=== PATIENT | male | born 1945 | race Caucasian/White ===

== ENCOUNTER 2023-09-23 09:04 | Inpatient (IN) | payer MEDICARE, OTHER ==
[2023-09-24] MEDS ORDERED: Acetaminophen 325 MG Tab PO PRN (12:07)
[2023-09-24] MEDS ORDERED: Nitroglycerin 0.4 MG Tab.SL SL PRN (12:34)
[2023-09-24] MEDS ORDERED: Prochlorperazine 5 MG Tab PO PRN (13:22)
[2023-09-24] MEDS ORDERED: Glucagon,Human Recombinant 1 MG Vial IM PRN (13:32)
[2023-09-24] MEDS ORDERED: 50% Dextrose in Water 50 ML Syringe IVPUSH PRN (13:32)
[2023-09-24] MEDS ORDERED: Albuterol 6.7 GM Inhaler INH PRN (14:04)
[2023-09-24] MEDS ORDERED: OLANZapine 10 MG Tab.DIS PO PRN (14:15)
[2023-09-24] MEDS: Polyvinyl Alcohol 1.4% Ophth Soln 15 ML Bottle EYEBOTH SCH (16:38)
[2023-09-24] MEDS: Al and Mag Hydroxide/Diphenhydramine/Lidocaine/Simethicone 237 ML Bottle PO SCH (16:38)
[2023-09-24] MEDS: Rivaroxaban 10 MG Tab PO SCH (17:34)
[2023-09-24] MEDS: Dexamethasone 2 MG Tab PO SCH (17:34)
[2023-09-24] MEDS: Metoprolol Tartrate 25 MG Tab PO SCH (17:35)
[2023-09-24] MEDS: Insulin Lispro 100 Units/ML 3 ML Vial SUBCUT SCH (17:37)
[2023-09-24] MEDS ORDERED: Non-Formulary Medication 1 Each (Insulin Aspart 100 UNIT/ML Vial) SQ SCH (18:00)
[2023-09-24] MEDS: Latanoprost 0.005% Ophth Soln 2.5 ML Bottle EYEBOTH SCH (19:29)
[2023-09-24] MEDS: prednisoLONE Acetate 1% Ophth Susp 5 ML Bottle EYERT SCH (19:30)
[2023-09-24] MEDS: Arformoterol 15 MCG/2 ML Neb Soln INH SCH (19:31)
[2023-09-24] MEDS: Formoterol/Mometasone 200-5 MCG 8.8 GM Inhaler IH SCH (19:32)
[2023-09-25] MEDS: Cholecalciferol (Vitamin D3) 25 MCG Tab PO SCH (07:27)
[2023-09-25] MEDS: Rosuvastatin 10 MG Tab PO SCH (07:27)
[2023-09-25] MEDS: Budesonide 0.5 MG/2 ML Neb Susp INH SCH (07:27)
[2023-09-25] MEDS: Pantoprazole 40 MG Tab.CR PO SCH (07:28)
[2023-09-25] MEDS: Allopurinol 100 MG Tab PO SCH (07:28)
[2023-09-25] MEDS: Tamsulosin 0.4 MG Cap.ER PO SCH (07:28)
[2023-09-25] MEDS: Aspirin 81 MG Tab.EC PO SCH (07:29)
[2023-09-25] MEDS: Timolol Maleate 0.5% Ophth Soln 5 ML Bottle EYEBOTH SCH (07:31)
[2023-09-25] MEDS: amLODIPine 5 MG Tab PO SCH (08:36)
[2023-09-25] MEDS: Polyvinyl Alcohol 1.4% Ophth Soln 15 ML Bottle EYEBOTH PRN (11:34)
[2023-09-27] MEDS: Polyethylene Glycol 3350 Powder 17 GM Packet PO ONE (14:33)
[2023-09-29] MEDS: Polyethylene Glycol 3350 Powder 17 GM Packet PO ONE (11:39)
[2023-10-02] MEDS: Zolpidem 5 MG Tab PO PRN (19:10)
[2023-10-03] MEDS: Bacitracin/Neomycin/Polymyxin B Oint 0.9 GM U/D Packet TOP SCH (19:57)
[2023-10-05] MEDS: Mineral Oil/Petrolatum/Phenylephrine/Shark Liver Oil Oint 57 GM Tube RECTAL PRN (08:19)
[2023-10-09] MEDS ORDERED: Diazepam 5 MG Tab PRN (15:55)
[2023-10-09] MEDS: LORazepam 0.5 MG Tab PO PRN (19:42)
[2023-10-10] MEDS: Cephalexin 500 MG Cap PO SCH (13:02)
[2023-10-10] MEDS: Insulin Lispro 100 Units/ML 3 ML Vial SUBCUT SCH (17:27)
[2023-10-10] MEDS: Al and Mag Hydroxide/Diphenhydramine/Lidocaine/Simethicone 237 ML Bottle PO SCH (19:08)
[2023-10-10] MEDS: Bacitracin/Neomycin/Polymyxin B Oint 0.9 GM U/D Packet TOP SCH (19:10)
[2023-10-10] MEDS: LORazepam 0.5 MG Tab PO PRN (19:35)
[2023-10-11] MEDS: Polyethylene Glycol 3350 Powder 510 GM Bot PO SCH (08:52)
[2023-10-14 09:02] VITALS: BP 101/57; PULSE 70
== END 2023-10-14 14:15 | DRG 947 ==
LOC: LL.MS 09-24 11:30 → UNDOADMIN 09-24 11:30 → LL.MS 09-24 11:50 → UNDOADMIN 09-24 11:50 → LL.SWG 09-27 10:00
PROVIDERS: ADMIT Physician Assistant; ATTEND Nurse Practitioner Family
DX: R53.81 Other malaise (principal); E43 Unspecified severe protein-calorie malnutrition; N17.9 Acute kidney failure, unspecified; C85.90 Non-Hodgkin lymphoma, unspecified, unspecified site; C79.31 Secondary malignant neoplasm of brain; I48.91 Unspecified atrial fibrillation; Z66 Do not resuscitate; I25.10 Atherosclerotic heart disease of native coronary artery without angina pectoris; E78.00 Pure hypercholesterolemia, unspecified; J44.9 Chronic obstructive pulmonary disease, unspecified; N40.0 Benign prostatic hyperplasia without lower urinary tract symptoms; R63.4 Abnormal weight loss; N18.9 Chronic kidney disease, unspecified; I12.9 Hypertensive chronic kidney disease with stage 1 through stage 4 chronic kidney disease, or unspecified chronic kidney disease; R79.89 Other specified abnormal findings of blood chemistry; R13.10 Dysphagia, unspecified; D50.8 Other iron deficiency anemias; D63.1 Anemia in chronic kidney disease; C06.9 Malignant neoplasm of mouth, unspecified; R73.9 Hyperglycemia, unspecified; K59.00 Constipation, unspecified; Z88.8 Allergy status to other drugs, medicaments and biological substances; Z79.899 Other long term (current) drug therapy; Z79.82 Long term (current) use of aspirin; Z79.51 Long term (current) use of inhaled steroids; Z79.4 Long term (current) use of insulin; Z79.01 Long term (current) use of anticoagulants; Z87.442 Personal history of urinary calculi; Z95.1 Presence of aortocoronary bypass graft; Z98.1 Arthrodesis status; Z98.890 Other specified postprocedural states
CPT/HCPCS: 82947; 87070; 87186; 87205; 94640; 97110-GO; 97112-GP; 97163-GP; 97165-GO; 97530-GO; 97530-GP; 97535-GO; A9270-GY; J1815-GY; J3490; J8540